=== PATIENT | female | born 2000 | race African-American/Black ===

== ENCOUNTER 2019-03-21 15:09 | Emergency (ER) | payer OTHER ==
[~2019-03-21] VITALS: Ht 180.3 cm; Wt 72.6 kg
[2019-03-21 16:39] LABS: URINE BLOOD TRACE (Negative); URINE CLARITY CLOUDY; URINE COLOR YELLOW; URINE GLUCOSE-RANDOM* NEGATIVE (Negative); URINE KETONES 3+ (Negative); URINE LEUKOCYTES-REFLEX TRACE (Negative); URINE NITRITE-REFLEX NEGATIVE (Negative); URINE PROTEIN (DIPSTICK) 2+ (Negative); URINE SPECIFIC GRAVITY 1.025 (1.005-1.035)
[2019-03-21 16:49] LABS: URINE BILIRUBIN NEGATIVE (Negative)
[2019-03-21 16:50] LABS: ICTOTEST (BILI CONFIRMATORY) Negative (Negative)
[2019-03-21 16:53] LABS: SQUAMOUS >10 Many /LPF (0-3)
[2019-03-21 16:56] LABS: CASTS None Seen /LPF (None Seen); CRYSTALS None Seen /LPF (None Seen)
[2019-03-21 16:57] LABS: URINE RBC 0-2 Rare /HPF (0-2); URINE WBC-REFLEX 6-15 Few /HPF (0-5)
[2019-03-21 17:49] VITALS: BP 114/63
== END 2019-03-21 17:50 | disposition home or self-care (01) ==
LOC: ER 15:09
PROVIDERS: Emergency Medicine
DX: O98.311 Other infections with a predominantly sexual mode of transmission complicating pregnancy, first trimester (principal); A59.01 Trichomonal vulvovaginitis; Z33.1 Pregnant state, incidental

== ENCOUNTER 2019-07-07 13:39 | Emergency (ER) | payer OTHER ==
[~2019-07-07] VITALS: Ht 180.3 cm; Wt 72.6 kg
[2019-07-07 14:43] LABS: CALCIUM 9.5 mg/dL (8.5-10.1); CREATININE 0.8 mg/dL (0.6-1.0); POTASSIUM 3.3 mmol/L (3.5-5.1)
[2019-07-07 14:44] LABS: BASOPHILS 0.3 % (0.0-2.0); HEMOGLOBIN 13.1 gm/dL (12.0-15.0); MONOCYTES 7.6 % (1.0-8.0); POLYS 83.6 % (36.0-66.0); RDW 13.3 % (10.5-14.5)
[2019-07-07 14:46] LABS: ABSOLUTE NEUTROPHILS 14.4 thou/uL (1.4-8.2); EOSINOPHILS 0.1 % (0.0-3.0); HEMATOCRIT 39.1 % (37.0-47.0); LYMPHOCYTES 8.4 % (24.0-44.0); MCH 28.1 pg (26.0-34.0); MCHC 33.5 g/dL (28.0-37.0); MCV 83.8 fL (80.0-100.0); RBC 4.67 mil/uL (4.20-5.00); WBC 17.2 thou/uL (4.0-11.0)
[2019-07-07 14:49] LABS: ALBUMIN 4.2 g/dL (3.4-5.0); TOTAL PROTEIN 8.1 g/dL (6.4-8.2)
[2019-07-07 14:57] LABS: URINE BLOOD NEGATIVE (Negative); URINE COLOR YELLOW; URINE GLUCOSE-RANDOM* NEGATIVE (Negative); URINE KETONES 3+ (Negative); URINE NITRITE-REFLEX NEGATIVE (Negative); URINE PROTEIN (DIPSTICK) 1+ (Negative); URINE SPECIFIC GRAVITY 1.025 (1.005-1.035)
[2019-07-07 14:59] LABS: ICTOTEST (BILI CONFIRMATORY) Negative (Negative); URINE BILIRUBIN NEGATIVE (Negative); URINE CLARITY CLOUDY; URINE LEUKOCYTES-REFLEX 1+ (Negative)
[2019-07-07 15:02] LABS: URINE REDUCING SUBSTANCE NEGATIVE
[2019-07-07 15:04] LABS: SQUAMOUS 4-10 Moderate /LPF (0-3); URINE WBC-REFLEX 6-15 Few /HPF (0-5)
[2019-07-07 15:05] LABS: AMORPHOUS URATES Moderate /LPF (None Seen); CASTS None Seen /LPF (None Seen); URINE RBC None Seen /HPF (0-2)
[2019-07-07 15:08] LABS: PLATELET COUNT 165 thou/uL (150-400); PLATELET ESTIMATE NORMAL
[2019-07-07] MEDS ORDERED: DOXYCYCLINE HY100 M3 PO (15:52)
[2019-07-07] MEDS ORDERED: FLAGYL500 M1 PO (15:52)
[2019-07-07] MEDS ORDERED: TRAMADOL 50 MG50 MG PO (15:52)
[2019-07-07] MEDS ORDERED: NAPROSYN500 MG PO (15:52)
[2019-07-07 16:17] VITALS: BP 117/63
== END 2019-07-07 16:18 | disposition home or self-care (01) ==
LOC: ER 13:39
PROVIDERS: Emergency Medicine
DX: N73.9 Female pelvic inflammatory disease, unspecified (principal); R19.7 Diarrhea, unspecified

== ENCOUNTER 2021-03-07 09:58 | Emergency (ER) | payer OTHER ==
[~2021-03-07] VITALS: Ht 180.3 cm; Wt 71.7 kg
[~2021-03-07 09:58] MED LIST: DOXYCYCLINE HY100 M3 PO; FLAGYL500 M1 PO; NAPROSYN500 MG PO; TRAMADOL 50 MG50 MG PO
[2021-03-07] MEDS ORDERED: NORCO5 PO (13:02)
[2021-03-07] MEDS ORDERED: ZOFRAN ODT4 MG PO (13:02)
[2021-03-07] MEDS ORDERED: AMOXIL 875 MG875 M2 PO (13:02)
[2021-03-07 13:03] VITALS: BP 121/75
== END 2021-03-07 13:03 | disposition home or self-care (01) ==
LOC: ER 09:58
DX: S02.31XA Fracture of orbital floor, right side, initial encounter for closed fracture (principal); S09.8XXA Other specified injuries of head, initial encounter; Z20.822 Contact with and (suspected) exposure to COVID-19; W22.8XXA Striking against or struck by other objects, initial encounter; Y93.89 Activity, other specified; Y92.89 Other specified places as the place of occurrence of the external cause; Y99.8 Other external cause status